=== PATIENT | male | born 1950 | race Caucasian/White ===

== ENCOUNTER → 2017-04-14 | Outpatient (CLI) | payer OTHER ==
[~2017-04-14] MED LIST: AMLO-218 PO; CARV-39 PO; IRBE75TA10 PO; METF500T4 PO; NAPR-874 PO; OMEP-110 PO; OMEP20TA62 PO; POTA500C PO; SIMV20TA3 PO
== END | disposition home or self-care (01) ==
LOC: RAD 09:00
PROVIDERS: ATTEND Physician Assistant Medical
DX: K22.9 Disease of esophagus, unspecified (principal); K21.9 Gastro-esophageal reflux disease without esophagitis; I10 Essential (primary) hypertension; E78.00 Pure hypercholesterolemia, unspecified; G47.30 Sleep apnea, unspecified
CPT/HCPCS: 74220